=== PATIENT | female | born 1965 | race Caucasian/White ===

== ENCOUNTER 2016-09-15 12:08 | Day surgery (SDC) | payer OTHER ==
[2016-09-15] VITALS (7 sets, daily range): BP systolic 122–150; BP diastolic 72–91; PULSE 82–109; RESP 14–18; Ht 154.9 cm; Wt 107.8 kg
[~2016-09-15] VITALS: Ht 154.9 cm; Wt 107.8 kg
[~2016-09-15 12:08] MED LIST: ALPR1TAB2 PO; CEFAZOLIN 2 GM/50 ML (PMX) 50 ML IVPB SCH; SOD CHLORIDE 0.9% 1,000 ML IV SCH
[2016-09-15] MEDS ORDERED: AMIT50TA3 PO (12:41)
[2016-09-15] MEDS ORDERED: ROPI1TAB PO (12:43)
[2016-09-15] MEDS ORDERED: MELO-110 PO (12:44)
--- NOTE | 2016-09-15 13:33 | RADRPT ---
PROCEDURE: XR Chest. CLINICAL INDICATION: Preoperative for right upper extremity MASS removal. TECHNIQUE: Single frontal view. COMPARISON: None. FINDINGS: The lungs are clear. The heart size is normal. There is no pleural effusion. There is no pneumothorax. IMPRESSION: 1. Normal chest radiograph. RPTAT: QQ .Demario Burroughs MD, MD Date Time Electronically viewed and signed by .Demario Burroughs MD, MD on 09/15/2016 13:33 .R/
[2016-09-15] MEDS ORDERED: BUPIVACAINE 0.25% (MPF) 30 ML INJ ONE (15:07)
[2016-09-15] MEDS ORDERED: BUPIVACAINE 0.5% (SDV) 30 ML INJ ONE (15:09)
[2016-09-15] MEDS ORDERED: LIDOCAINE 2% (MDV) 20 ML INJ ONE (15:09)
[2016-09-15] MEDS ORDERED: FENTAnyl 50 MCG/ML VIAL ONE (15:14)
[2016-09-15] MEDS ORDERED: MIDAZOLAM 1 MG/ML 2 ML INJ ONE (15:15)
[2016-09-15] MEDS ORDERED: ONDANSETRON 4 MG INJ ONE (15:51)
[2016-09-15] MEDS ORDERED: CEFAZOLIN 1 GM INJ ONE (15:51)
[2016-09-15] MEDS ORDERED: LIDOCAINE 2% (SDV) 5 ML INJ ONE (15:51)
[2016-09-15] MEDS ORDERED: PROPOFOL 20 ML ONE (15:51)
[2016-09-15] MEDS ORDERED: DIPHENHYDRAMINE 50 MG INJ IV PRN (16:00)
[2016-09-15] MEDS ORDERED: ONDANSETRON 4 MG INJ IV PRN (16:00)
[2016-09-15] MEDS ORDERED: morphine (1 MG/ML) 10ML SYRINGE IV PRN ×2 (16:00)
[2016-09-15] MEDS ORDERED: MEPERIDINE 25 MG INJ IV PRN (16:00)
[2016-09-15] MEDS ORDERED: FENTAnyl 50 MCG/ML VIAL IV PRN (16:00)
[2016-09-15] MEDS ORDERED: HYDROCODONE/APAP (5/325) TAB PO ONE (16:00)
--- NOTE | 2016-09-15 16:21 | OPR ---
DATE OF OPERATION: 09/15/2016 INDICATION: This is a 51-year-old female with a right arm tumor. She requests surgical excision. Risks, alternatives, benefits, and personnel were discussed with the patient. The patient expressed understanding and consents to the operation. PREOPERATIVE DIAGNOSIS: Right arm tumor. PREOPERATIVE DIAGNOSIS: Right arm tumor. OPERATION PERFORMED: 1. Excision of right arm tumor with 8 cm size incision and 8 cm size mass. 2. Localized adjacent tissue transfer with the use of skin flaps with approximately 21 square cm of defect. 3. Therapeutic injection of subcutaneous Marcaine. CPT code 71405. SURGEON: Mychal Cunningham MD SPECIMEN: Right arm tumor. COMPLICATIONS: None. ANESTHESIA: General. DESCRIPTION OF PROCEDURE: The patient was taken to the OR and prepped and draped in the usual steri le fashion. Surgical timeout was performed. IV antibiotics were given. Transverse incision was ma de with a 15 blade over the tumor. Dissection cautery was carried down to the tumor and circumferen tially excised with cautery. There was good hemostasis. Due to the large tissue defect with approx imately 21 square cm of defect, localized adjacent tissue transfer with the use of skin flaps was pe rformed. Multilayer closure with interrupted 3-0 Vicryl and skin azael. Local anesthesia was inj ected. Dictated By: MYCHAL HAMPTON/MEME Conf#: [id number] DID#: [id number]
--- NOTE | 2016-09-15 20:03 | RADRPT ---
Vent Rate: 98 bpm RR Interval: 0 msec [place] Interval: 166 msec QRS Duration: 84 msec QT Interval: 382 msec QTC Interval: 487 msec P-R-T [place]: 45 - 39 - 48 degrees Normal sinus rhythm Prolonged QT Abnormal ECG Electronically Signed By: Tyrell Waterman [id number]
== END 2016-09-15 17:00 | disposition home or self-care (01) ==
LOC: SDS 12:08
PROVIDERS: ATTEND Surgery
DX: D17.21 Benign lipomatous neoplasm of skin and subcutaneous tissue of right arm (principal); E66.01 Morbid (severe) obesity due to excess calories; Z68.41 Body mass index [BMI] 40.0-44.9, adult
CPT/HCPCS: 14020; 71010; 84703; 88305; 93005; J0690; J2250; J2405; J3010; Z7512; Z7610

== ENCOUNTER 2016-10-14 12:16 | Day surgery (SDC) | payer OTHER ==
[~2016-10-14] VITALS: Ht 154.9 cm; Wt 108.0 kg
[2016-10-14] VITALS (9 sets, daily range): BP systolic 121–142; BP diastolic 69–83; PULSE 96–112; RESP 14–20; Ht 154.9 cm; Wt 108.0 kg
[~2016-10-14 12:16] MED LIST changes: -ALPR1TAB2 PO; +AMIT50TA3 PO; -CEFAZOLIN 2 GM/50 ML (PMX) 50 ML IVPB SCH; +DIPHENHYDRAMINE 50 MG INJ IV PRN; +FENTAnyl 50 MCG/ML VIAL IV PRN; +HYDROmorphONE (0.2 MG/ML) 10ML SYG IV PRN; +KETOROLAC 30 MG INJ IV ONE; +MELO-110 PO; +MEPERIDINE 25 MG INJ IV PRN; +ONDANSETRON 4 MG INJ IV PRN; +OXYCODONE/ACETAMINOPHEN (5/325) TAB PO PRN; +PROCHLORPERAZINE 10 MG INJ IV PRN; +ROPI1TAB PO; -SOD CHLORIDE 0.9% 1,000 ML IV SCH
[2016-10-14] MEDS ORDERED: BUPIVACAINE 0.25% (MPF) 30 ML INJ ONE ×2 (13:29→13:48)
[2016-10-14] MEDS ORDERED: BUPIVACAINE 0.5% (SDV) 30 ML INJ ONE (13:33)
[2016-10-14] MEDS ORDERED: LIDOCAINE 2% (MDV) 20 ML INJ ONE (13:33)
[2016-10-14] MEDS ORDERED: LIDOCAINE 2% (SDV) 5 ML INJ ONE (13:57)
[2016-10-14] MEDS ORDERED: MIDAZOLAM 1 MG/ML 2 ML INJ ONE (13:57)
[2016-10-14] MEDS ORDERED: PROPOFOL 20 ML ONE (13:57)
[2016-10-14] MEDS ORDERED: CEFAZOLIN 1 GM INJ ONE (14:05)
[2016-10-14] MEDS ORDERED: ONDANSETRON 4 MG INJ ONE (14:07)
[2016-10-14] MEDS ORDERED: METOCLOPRAMIDE 10 MG INJ ONE (14:07)
[2016-10-14] MEDS ORDERED: PHENYLephrine (100 MCG/ML) 5ML SYG ONE (14:26)
--- NOTE | 2016-10-14 14:47 | OPR ---
Date/Time of Note Date/Time of Note DATE: 10/14/16 TIME: 14:46 Operative Report Procedure Date: Oct 14, 2016 Preoperative Diagnosis right arm tumor Postoperative Diagnosis same Operation Performed radical resection of right arm tumor 15cm x 6 cm localized adjacent tissue transfer with the use of skin flaps 96 sq cm defect Surgeon: Jenelle TONY Specimens right arm tumor Jenelle TONY Oct 14, 2016 14:47
[2016-10-14] MEDS ORDERED: HYDROCODONE/APAP (5/325) TAB PO ONE (15:00)
--- NOTE | 2016-10-14 15:01 | OPR ---
DATE OF OPERATION: 10/14/2016 INDICATION: This is a 51-year-old female found to have a right arm tumor. She is here for a reexci hiral. Risks, alternatives, benefits, and personnel were discussed with the patient. The patient ex presses understanding and consents to the operation. PREOPERATIVE DIAGNOSIS: Right arm tumor. PREOPERATIVE DIAGNOSIS: Right arm tumor. OPERATION PERFORMED: 1. Radical excision of margins of right arm tumor with a 15 cm size incision and 15 x 6 cm size les ion. 2. Localized adjacent tissue transfer with the use of skin flaps of 96 square cm defect. SURGEON: Mychal Cunningham MD SPECIMEN: Right arm tumor. COMPLICATIONS: None. ANESTHESIA: General. DESCRIPTION OF PROCEDURE: The patient was taken to the OR and prepped and draped in the usual ster ile fashion. Surgical timeout was performed. IV antibiotics given. An elliptical incision was mad e over the prior incision site of the right arm tumor. Dissection cautery circumferentially taken t o the muscle all the way around the tumor. Silk sutures were used for short superior, long lateral and skin is anterior. The specimen was sent. Hemostasis was established. The wound was irrigated with Betadine. Superior and inferior skin flaps were created for approximation of the large defect. Multilayer closure with interrupted 2-0 Vicryl and skin azael. Local anesthesia was injected. Dry dressings were applied. Dictated By: MYCHAL HAMPTON/MEME Conf#: [id number] DID#: [id number]
== END 2016-10-14 16:25 | disposition home or self-care (01) ==
LOC: SDS 12:16
PROVIDERS: ATTEND Surgery
DX: M79.89 Other specified soft tissue disorders (principal); L90.5 Scar conditions and fibrosis of skin; E66.01 Morbid (severe) obesity due to excess calories; Z68.42 Body mass index [BMI] 45.0-49.9, adult
CPT/HCPCS: 14301; 14302; 24071; 88304; J0690; J2175; J2250; J2370; J2405; J2765; J3010; Z7512; Z7610

== ENCOUNTER 2017-01-07 08:02 | Day surgery (SDC) | payer OTHER ==
[~2017-01-07] VITALS: Ht 154.9 cm; Wt 112.6 kg
[~2017-01-07 08:02] MED LIST changes: -DIPHENHYDRAMINE 50 MG INJ IV PRN; -FENTAnyl 50 MCG/ML VIAL IV PRN; -HYDROmorphONE (0.2 MG/ML) 10ML SYG IV PRN; -KETOROLAC 30 MG INJ IV ONE; -MEPERIDINE 25 MG INJ IV PRN; -ONDANSETRON 4 MG INJ IV PRN; -OXYCODONE/ACETAMINOPHEN (5/325) TAB PO PRN; -PROCHLORPERAZINE 10 MG INJ IV PRN
[2017-01-07 08:25] VITALS: Ht 154.9 cm; Wt 112.6 kg
[2017-01-07] MEDS ORDERED: PROPOFOL 40 ML ONE ×2 (08:41→09:23)
[2017-01-07] MEDS ORDERED: ATROPINE 1 MG INJ ONE (08:42)
[2017-01-07] MEDS ORDERED: LIDOCAINE 100 MG SYRINGE ONE (08:42)
[2017-01-07 08:45] VITALS: BP 136/81; PULSE 83; RESP 18
[2017-01-07] MEDS ORDERED: OMEP40CA6 PO (08:47)
--- NOTE | 2017-01-07 09:34 | OPPN ---
Date/Time of Note Date/Time of Note DATE: 01/07/17 TIME: 09:31 Proc Note GI Procedure date: Jan 07, 2017 Pre-procedure Diagnosis g mi bleeding Post-procedure Diagnosis mild gastritis normal colon Operation Performed egd colonoscopy Anesthesia Type: moderate sedation Anesthesiologist: JESUS QUACH MD Estimated blood loss: none Transfusion Required: no Specimens gastric bx Grafts/Implants: none Complications: no Complications none Pt Condition post procedure: stable Indications occult gi bleeding Operative\Procedure Findings egd gastritis colonoscopy neg cc DEAN Maldonado MD Jan 07, 2017 09:34
[2017-01-07 10:08] VITALS: BP 145/68; PULSE 84; RESP 14
--- NOTE | 2017-01-07 11:12 | GILP ---
DATE OF PROCEDURE: 01/07/2017 PROCEDURE PERFORMED: 1. Esophagogastroduodenoscopy. 2. Colonoscopy. PREOPERATIVE DIAGNOSES: 1. Occult gastrointestinal bleeding. Rule out peptic ulcer disease, malignancy etc. 2. Rule out colorectal neoplasm. POSTOPERATIVE DIAGNOSES: 1. Diffuse mild gastritis. CLOtest was done. 2. Colonoscopy appeared normal. Normal mucosa. No evidence of polyps. No evidence of neoplasm. No evidence of hemorrhoids noted. DESCRIPTION OF PROCEDURE: After informed written consent was obtained, the patient was asked to lie on the left lateral side. Intravenous anesthesia was given by anesthesiologist, Dr. Daniel. When the patient became somnolent, Olympus video upper endoscope was introduced into the oropharynx and then into the esophagus. Esophagus showed normal mucosal pattern with no evidence of any mucosal abnormality. The scope at this time was advanced into the stomach. Stomach showed evidence of diffuse areas of erythema but some of them were more prominent in the antrum. The duodenal mucosa appeared normal up to the end of the 3rd portion. Endoscope at this time was withdrawn and biopsies were obtained from the antrum and the lesser curvature of the fundus to rule out H pylori infection. Meanwhile, we will recommend omeprazole 40 mg a day for 2 months. Next, Olympus video colonoscope was introduced into the rectum and scope was advanced all the way to the cecum. Entire colon appeared normal with no mucosal abnormality. No polyps, no tumors, or any other abnormality detected. On the way out, no internal hemorrhoids, no external hemorrhoids were noted and the procedure was terminated. Recommend further workup as indicated. Dictated By: Fermin Hunter MD /jared/sherry /Document#: [id number]
== END 2017-01-07 11:42 | disposition home or self-care (01) ==
LOC: GIL 08:02 → SDS 08:10 → GIL 11:42
PROVIDERS: ATTEND Internal Medicine Gastroenterology
DX: K29.30 Chronic superficial gastritis without bleeding (principal); K21.9 Gastro-esophageal reflux disease without esophagitis; E66.01 Morbid (severe) obesity due to excess calories; Z68.42 Body mass index [BMI] 45.0-49.9, adult; G47.30 Sleep apnea, unspecified
CPT/HCPCS: 43239; 45378; 88305; 88312; J0461; J2001; Z7610